=== PATIENT | male | born 1985 | race Two or more races ===

== ENCOUNTER 2023-10-18 14:00 | Inpatient (IN) | payer OTHER ==
[2023-10-18 14:25] VITALS: BMI 25.0
[2023-10-18] MEDS ORDERED: POLYETHYLENE GLYCOL (HEALTHYLAX) 3350 17 GM PACKET PO PRN (17:01)
[2023-10-18] MEDS ORDERED: LOPERAMIDE HCL 2 MG CAPSULE PO PRN (17:01)
[2023-10-18] MEDS ORDERED: ACETAMINOPHEN 325 MG TABLET (FP) PO PRN (17:01)
[2023-10-18] MEDS ORDERED: hydrOXYzine PAMOATE 25 MG CAPSULE (FP) PO PRN (17:01)
[2023-10-18] MEDS ORDERED: MAGNESIUM HYDROX 2400MG/30ML ORAL SUSPENSION 30 ML CUP PO PRN (17:01)
[2023-10-18] MEDS ORDERED: BENZOCAINE/MENTHOL (CHLORASEPTIC ) LOZENGE MM PRN (17:01)
[2023-10-18] MEDS ORDERED: IBUPROFEN 400 MG TABLET (FP) PO PRN (17:01)
[2023-10-18] MEDS ORDERED: guaiFENesin 600 MG TABLET.ER (FP) PO PRN (17:01)
[2023-10-18] MEDS ORDERED: BENZONATATE 200 MG CAPSULE PO PRN (17:01)
[2023-10-18] MEDS ORDERED: METHOCARBAMOL 500 MG TABLET PO PRN (17:01)
[2023-10-18] MEDS ORDERED: MAG HYDROX/AL HYDROX/SIMETH 30 ML UNIT-DOSE CUP PO PRN (17:01)
[2023-10-18] MEDS ORDERED: IBUPROFEN 600 MG TABLET (FP) PO PRN (17:01)
[2023-10-18] MEDS ORDERED: P-EPHED 60MG/TRIPROLIDI 2.5MG TABLET PO PRN (17:01)
[2023-10-18] MEDS ORDERED: COLLOIDAL OATMEAL 1 BAR EACH TP PRN (17:01)
[2023-10-18] MEDS ORDERED: TUBERCULIN PPD 5 TU/0.1ML VIAL ID ONE (21:39)
[2023-10-18] MEDS: THIAMINE HCL 100 MG TABLET (FP) PO SCH (21:41)
[2023-10-18] MEDS: MELATONIN 5 MG TABLETS PO SCH (21:41)
[2023-10-19] MEDS: PRENATAL VITAMINS W/ FOLIC ACID TABLET (FP) PO SCH (10:02)
[2023-10-19] MEDS: LITHIUM CARBONATE 300 MG CAPSULE PO SCH (21:07)
[2023-10-19] MEDS: BENZTROPINE MESYLATE 1 MG TABLET PO SCH (21:08)
[2023-10-19] MEDS: OLANZapine 10 MG TABLET PO SCH (21:08)
[2023-10-19] MEDS: MELATONIN 5 MG TABLETS PO SCH (21:08)
[2023-10-19] MEDS: THIAMINE HCL 100 MG TABLET (FP) PO SCH (21:08)
[2023-10-20] MEDS: PRENATAL VITAMINS W/ FOLIC ACID TABLET (FP) PO SCH (09:59)
[2023-10-20] MEDS: ARIPiprazole 10 MG TABLET PO SCH (11:42)
[2023-10-20] MEDS ORDERED: TUBERCULIN PPD 5 TU/0.1ML VIAL ID ONE (20:59)
[2023-10-20] MEDS: MELATONIN 5 MG TABLETS PO SCH (21:19)
[2023-10-20] MEDS: BENZTROPINE MESYLATE 1 MG TABLET PO SCH (21:19)
[2023-10-20] MEDS: LITHIUM CARBONATE 300 MG CAPSULE PO SCH (21:19)
[2023-10-20] MEDS: OLANZapine 10 MG TABLET PO SCH (21:19)
[2023-10-20] MEDS: THIAMINE HCL 100 MG TABLET (FP) PO SCH (21:19)
[2023-10-21] MEDS: ARIPiprazole 10 MG TABLET PO SCH (10:12)
[2023-10-21] MEDS: PRENATAL VITAMINS W/ FOLIC ACID TABLET (FP) PO SCH (10:12)
[2023-10-21] MEDS: BENZTROPINE MESYLATE 1 MG TABLET PO SCH (21:47)
[2023-10-21] MEDS: OLANZapine 10 MG TABLET PO SCH (21:47)
[2023-10-21] MEDS: MELATONIN 5 MG TABLETS PO SCH (21:48)
[2023-10-21] MEDS: THIAMINE HCL 100 MG TABLET (FP) PO SCH (21:48)
[2023-10-21] MEDS: LITHIUM CARBONATE 300 MG CAPSULE PO SCH (21:57)
[2023-10-22] MEDS: ARIPiprazole 10 MG TABLET PO SCH (09:36)
[2023-10-22] MEDS: PRENATAL VITAMINS W/ FOLIC ACID TABLET (FP) PO SCH (09:36)
[2023-10-22] MEDS: OLANZapine 10 MG TABLET PO SCH (21:42)
[2023-10-22] MEDS: MELATONIN 5 MG TABLETS PO SCH (21:42)
[2023-10-22] MEDS: LITHIUM CARBONATE 300 MG CAPSULE PO SCH (21:43)
[2023-10-22] MEDS: BENZTROPINE MESYLATE 1 MG TABLET PO SCH (21:43)
[2023-10-22] MEDS: THIAMINE HCL 100 MG TABLET (FP) PO SCH (21:43)
[2023-10-23] MEDS: PRENATAL VITAMINS W/ FOLIC ACID TABLET (FP) PO SCH (09:43)
[2023-10-23] MEDS: ARIPiprazole 10 MG TABLET PO SCH (09:44)
[2023-10-23] MEDS: LITHIUM CARBONATE 300 MG CAPSULE PO SCH (21:41)
[2023-10-23] MEDS: BENZTROPINE MESYLATE 1 MG TABLET PO SCH (21:41)
[2023-10-23] MEDS: THIAMINE HCL 100 MG TABLET (FP) PO SCH (21:41)
[2023-10-23] MEDS: MELATONIN 5 MG TABLETS PO SCH (21:41)
[2023-10-23] MEDS: OLANZapine 10 MG TABLET PO SCH (22:07)
[2023-10-24] MEDS: PRENATAL VITAMINS W/ FOLIC ACID TABLET (FP) PO SCH (09:33)
[2023-10-24] MEDS: ARIPiprazole 10 MG TABLET PO SCH (09:33)
[2023-10-24] MEDS ORDERED: NICOTINE POLACRILEX 4 MG GUM BUC PRN (09:54)
[2023-10-24] MEDS: THIAMINE HCL 100 MG TABLET (FP) PO SCH (21:26)
[2023-10-24] MEDS: BENZTROPINE MESYLATE 1 MG TABLET PO SCH (21:26)
[2023-10-24] MEDS: MELATONIN 5 MG TABLETS PO SCH (21:26)
[2023-10-24] MEDS: LITHIUM CARBONATE 300 MG CAPSULE PO SCH (21:27)
[2023-10-24] MEDS: OLANZapine 10 MG TABLET PO SCH (21:27)
[2023-10-25] MEDS: PRENATAL VITAMINS W/ FOLIC ACID TABLET (FP) PO SCH (09:40)
[2023-10-25] MEDS: ARIPiprazole 10 MG TABLET PO SCH (09:40)
[2023-10-25] MEDS: BENZTROPINE MESYLATE 1 MG TABLET PO SCH (21:28)
[2023-10-25] MEDS: OLANZapine 10 MG TABLET PO SCH (21:28)
[2023-10-25] MEDS: LITHIUM CARBONATE 300 MG CAPSULE PO SCH (21:28)
[2023-10-25] MEDS: THIAMINE HCL 100 MG TABLET (FP) PO SCH (21:28)
[2023-10-25] MEDS: MELATONIN 5 MG TABLETS PO SCH (21:28)
[2023-10-26] MEDS: ARIPiprazole 10 MG TABLET PO SCH (09:35)
[2023-10-26] MEDS: PRENATAL VITAMINS W/ FOLIC ACID TABLET (FP) PO SCH (09:35)
[2023-10-26] MEDS: MELATONIN 5 MG TABLETS PO SCH (21:40)
[2023-10-26] MEDS: OLANZapine 10 MG TABLET PO SCH (21:40)
[2023-10-26] MEDS: THIAMINE HCL 100 MG TABLET (FP) PO SCH (21:40)
[2023-10-26] MEDS: BENZTROPINE MESYLATE 1 MG TABLET PO SCH (21:40)
[2023-10-26] MEDS: LITHIUM CARBONATE 300 MG CAPSULE PO SCH (21:40)
[2023-10-27] MEDS: ARIPiprazole 10 MG TABLET PO SCH (09:38)
[2023-10-27] MEDS: PRENATAL VITAMINS W/ FOLIC ACID TABLET (FP) PO SCH (09:38)
[2023-10-27] MEDS: THIAMINE HCL 100 MG TABLET (FP) PO SCH (21:36)
[2023-10-27] MEDS: OLANZapine 10 MG TABLET PO SCH (21:36)
[2023-10-27] MEDS: LITHIUM CARBONATE 300 MG CAPSULE PO SCH (21:36)
[2023-10-27] MEDS: MELATONIN 5 MG TABLETS PO SCH (21:36)
[2023-10-27] MEDS: BENZTROPINE MESYLATE 1 MG TABLET PO SCH (21:36)
[2023-10-28] MEDS: PRENATAL VITAMINS W/ FOLIC ACID TABLET (FP) PO SCH (09:55)
[2023-10-28] MEDS: ARIPiprazole 10 MG TABLET PO SCH (09:55)
[2023-10-28] MEDS: BENZTROPINE MESYLATE 1 MG TABLET PO SCH (21:32)
[2023-10-28] MEDS: LITHIUM CARBONATE 300 MG CAPSULE PO SCH (21:32)
[2023-10-28] MEDS: THIAMINE HCL 100 MG TABLET (FP) PO SCH (21:32)
[2023-10-28] MEDS: OLANZapine 10 MG TABLET PO SCH (21:32)
[2023-10-28] MEDS: MELATONIN 5 MG TABLETS PO SCH (21:32)
[2023-10-29] MEDS: PRENATAL VITAMINS W/ FOLIC ACID TABLET (FP) PO SCH (09:26)
[2023-10-29] MEDS: ARIPiprazole 10 MG TABLET PO SCH (09:26)
[2023-10-29] MEDS: MELATONIN 5 MG TABLETS PO SCH (21:14)
[2023-10-29] MEDS: LITHIUM CARBONATE 300 MG CAPSULE PO SCH (21:15)
[2023-10-29] MEDS: THIAMINE HCL 100 MG TABLET (FP) PO SCH (21:15)
[2023-10-29] MEDS: OLANZapine 10 MG TABLET PO SCH (21:15)
[2023-10-29] MEDS: BENZTROPINE MESYLATE 1 MG TABLET PO SCH (21:15)
[2023-10-30] MEDS: ARIPiprazole 10 MG TABLET PO SCH (09:39)
[2023-10-30] MEDS: PRENATAL VITAMINS W/ FOLIC ACID TABLET (FP) PO SCH (09:40)
[2023-10-30] MEDS: LITHIUM CARBONATE 300 MG CAPSULE PO SCH (21:16)
[2023-10-30] MEDS: MELATONIN 5 MG TABLETS PO SCH (21:16)
[2023-10-30] MEDS: OLANZapine 10 MG TABLET PO SCH (21:16)
[2023-10-30] MEDS: BENZTROPINE MESYLATE 1 MG TABLET PO SCH (21:16)
[2023-10-30] MEDS: THIAMINE HCL 100 MG TABLET (FP) PO SCH (21:16)
[2023-10-31 07:20] VITALS: RESP 18
[2023-10-31] MEDS: PRENATAL VITAMINS W/ FOLIC ACID TABLET (FP) PO SCH (09:48)
[2023-10-31] MEDS: ARIPiprazole 10 MG TABLET PO SCH (09:48)
[2023-10-31] MEDS: OLANZapine 10 MG TABLET PO SCH (21:31)
[2023-10-31] MEDS: LITHIUM CARBONATE 300 MG CAPSULE PO SCH (21:31)
[2023-10-31] MEDS: MELATONIN 5 MG TABLETS PO SCH (21:32)
[2023-10-31] MEDS: THIAMINE HCL 100 MG TABLET (FP) PO SCH (21:32)
[2023-10-31] MEDS: BENZTROPINE MESYLATE 1 MG TABLET PO SCH (21:32)
[2023-11-01 07:06] VITALS: BP 117/70; PULSE 70; TEMP 97.5
[2023-11-01] MEDS: ARIPiprazole 10 MG TABLET PO SCH (10:00)
[2023-11-01] MEDS: PRENATAL VITAMINS W/ FOLIC ACID TABLET (FP) PO SCH (10:00)
== END 2023-11-01 10:20 | disposition home or self-care (01) | DRG 772 ==
LOC: YASAS 14:00 → Y3W 17:28 → Y5N 10-20 17:03
PROVIDERS: ADMIT Allergy & Immunology; ATTEND Psychiatry & Neurology Pain Medicine
PROC: HZ42ZZZ Group Counseling for Substance Abuse Treatment, Cognitive-Behavioral (ICD-10-PCS; principal; 2023-10-18)
DX: F14.20 Cocaine dependence, uncomplicated (principal); F17.210 Nicotine dependence, cigarettes, uncomplicated; F25.9 Schizoaffective disorder, unspecified; F31.9 Bipolar disorder, unspecified; I10 Essential (primary) hypertension; Z87.39 Personal history of other diseases of the musculoskeletal system and connective tissue
CPT/HCPCS: 36415; 80053; 80178; 80307; 85027; 86780; 87389; 87635